=== PATIENT | male | born 1990 | race Caucasian/White ===

== ENCOUNTER 2016-12-10 20:03 | Emergency (ER) | payer OTHER ==
[~2016-12-10] VITALS: Ht 177.8 cm; Wt 64.9 kg
[2016-12-10] MEDS ORDERED: MOTR200T44 PO (21:45)
[2016-12-10 22:13] VITALS: BP 132/65
--- NOTE | 2016-12-11 08:34 | REP ---
Clinical: Trauma. Technique: AP, lateral, bilateral oblique views right foot . Findings: The lateral view suggests a nondisplaced corner fracture involving the anterior-superior margin of the navicular bone which requires correlation with point of tenderness and mechanism of injury. The remainder of the examination appears normal. Impression: Cannot exclude a small acute corner fracture along the anterior-superior margin of the navicular bone. Signed by Jhoan Campbell MD 12/11/2016 08:25 A
== END 2016-12-10 22:14 | disposition home or self-care (01) ==
LOC: M ED 20:31
DX: S90.31XA Contusion of right foot, initial encounter (principal); W23.0XXA Caught, crushed, jammed, or pinched between moving objects, initial encounter; Y92.89 Other specified places as the place of occurrence of the external cause; Y93.89 Activity, other specified; Y99.1 Military activity